=== PATIENT | male | born 1970 | race Caucasian/White ===

== ENCOUNTER 2016-06-08 19:37 | Emergency (ER) | payer OTHER | END 2016-06-08 22:08 | disposition home or self-care (01) | LOC: ER 19:37 | DX: H66.91 Otitis media, unspecified, right ear (principal); H60.92 Unspecified otitis externa, left ear; F17.210 Nicotine dependence, cigarettes, uncomplicated; Z88.0 Allergy status to penicillin | CPT/HCPCS: 99282 ==

== ENCOUNTER 2016-07-09 19:58 | Emergency (ER) | payer OTHER ==
[2016-07-09 20:36] LABS: BASO % 0.1 % (0.2-1.2); EOS # 0.1 10_X3_uL (0.0-0.5); EOS % 1.2 % (0.8-7.0); GRAN # 4.2 10_X3_uL (1.8-5.4); GRAN % 55.1 % (34.0-67.9); HEMATOCRIT 44.2 % (40-51); HEMOGLOBIN 15.7 g/dL (13.7-17.5); LYMPH # 2.7 10_X3_uL (1.3-3.6); LYMPH % 35.2 % (21.8-53.1); MEAN CORPUSCULAR HEMOGLOBIN 31.2 pg (27.0-33.0); MEAN CORPUSCULAR HGB CONC 35.5 g/dL (32.0-36.0); MEAN CORPUSCULAR VOLUME 87.7 fL (79-92); MEAN PLATELET VOLUME 10.3 fl (7.5-11.5); MONO # 0.7 10_X3_uL (0.3-0.8); MONO % 8.4 % (5.3-12.2); PLATELET COUNT 268 x10_3/uL (163-337); RED BLOOD COUNT 5.04 x10_6/uL (4.6-6.1); RED CELL DISTRIBUTION WIDTH 14.1 % (11.6-14.4); WHITE BLOOD COUNT 7.7 x10_3/uL (4.2-9.1)
== END 2016-07-09 20:57 | disposition home or self-care (01) ==
LOC: ER 19:58
PROVIDERS: General Practice
DX: M54.9 Dorsalgia, unspecified (principal); G89.29 Other chronic pain; F17.210 Nicotine dependence, cigarettes, uncomplicated; Z88.0 Allergy status to penicillin
CPT/HCPCS: 36415; 72072; 72100; 85025; 96372; 99283-25